=== PATIENT | female | born 1930 | race Caucasian/White ===

== ENCOUNTER → 2017-03-15 | Outpatient (CLI) | payer MEDICARE, BC ==
[2017-03-15 13:55] LABS: Blood Urea Nitrogen 23 mg/dL (7-17); Non-African American GFR(MDRD) >60 (>60 ml/min/1.73 sqM)
== END | disposition home or self-care (01) ==
LOC: LABWHC1 12:44
PROVIDERS: ATTEND Psychiatry & Neurology Neurology
DX: R51 Headache (principal)
CPT/HCPCS: 36415; 82565; 84520

== ENCOUNTER → 2017-05-25 | Outpatient (CLI) | payer MEDICARE, BC ==
--- NOTE | 2017-05-26 13:15 | MM ---
Reason for exam: screening (asymptomatic). Last mammogram was performed 1 year and 1 month ago. History: Patient is postmenopausal and has history of breast cancer at age 68. Family history of breast cancer in daughter at age 59. Benign left mammotome panel of the left breast, August 29, 2009. Malignant mastectomy of the right breast, May 05, 1999. Malignant excisional biopsy of the right breast, April 29, 1999. Benign stereotactic core biopsy of the left breast, August 05, 1998. Excisional biopsy of the left breast, 1998. Core biopsy of the left breast. Took hormonal contraceptives for 20 years beginning at age 31. Took estrogen for 25 years beginning at age 41. Took tamoxifen for 5 years beginning at age 68. Physical Findings: A clinical breast exam by your physician is recommended on an annual basis and results should be correlated with mammographic findings. MG 3D Scr Mohan Unilateral W/Cad Bilateral CC and MLO view(s) were taken. Prior study comparison: April 15, 2016, left breast MG 3d screening mammo w/cad. March 28, 2015, left breast MG 3d diag mammo w/cad LT. The breast tissue is heterogeneously dense. This may lower the sensitivity of mammography. Finding: There are typically benign vascular, dystrophic, round, linear calcifications in the left breast. Previous mammotome biopsy in the left breast. There is no discrete abnormality. ASSESSMENT: Benign, BI-RAD 2 RECOMMENDATION: Follow-up diagnostic mammogram of the left breast in 1 year.
== END | disposition home or self-care (01) ==
LOC: RADMAMWWP 10:42
PROVIDERS: ATTEND Internal Medicine
DX: Z12.31 Encounter for screening mammogram for malignant neoplasm of breast (principal)
CPT/HCPCS: 77067

== ENCOUNTER → 2018-02-07 | Outpatient (CLI) | payer MEDICARE, BC ==
--- NOTE | 2018-02-07 15:26 | XR ---
EXAMINATION TYPE: XR chest 2V DATE OF EXAM: 02/07/2018 COMPARISON: Prior chest x-ray 08/13/2013 HISTORY: COPD, shortness of breath TECHNIQUE: Frontal and lateral views of the chest are obtained. FINDINGS: There is no focal air space opacity, pleural effusion, or pneumothorax seen. The cardiac silhouette size is within normal limits. There is a spinal curvature. Minimal strand-like densities present at the level of the cardiac apex likely reflects scarring. The aorta is dense. Prominent lung volume may be indicative of underlying COPD. Probable vascular calcifications are present in left up per quadrant, there could be splenic artery aneurysm measuring 14 mm. The osseous structures are in tact. IMPRESSION: No acute cardiopulmonary process.
== END | disposition home or self-care (01) ==
LOC: RADXRYALE 13:07
PROVIDERS: ATTEND Internal Medicine Sleep Medicine
DX: J44.9 Chronic obstructive pulmonary disease, unspecified (principal)
CPT/HCPCS: 71046

== ENCOUNTER → 2018-06-28 | Outpatient (CLI) | payer MEDICARE, BC ==
--- NOTE | 2018-06-28 10:07 | MM ---
Reason for exam: screening (asymptomatic). Last mammogram was performed 1 year and 1 month ago. History: Patient is postmenopausal and has history of breast cancer at age 68. Family history of breast cancer in daughter at age 59. Benign left mammotome panel of the left breast, August 29, 2009. Malignant mastectomy of the right breast, May 05, 1999. Malignant excisional biopsy of the right breast, April 29, 1999. Benign stereotactic core biopsy of the left breast, August 05, 1998. Excisional biopsy of the left breast, 1998. Core biopsy of the left breast. Took hormonal contraceptives for 20 years beginning at age 31. Took estrogen for 25 years beginning at age 41. Took tamoxifen for 5 years beginning at age 68. Physical Findings: A clinical breast exam by your physician is recommended on an annual basis and results should be correlated with mammographic findings. MG 3D Diag Mammo W/Cad LT CC and MLO view(s) were taken of the left breast. Prior study comparison: May 25, 2017, bilateral MG 3d scr katie unilateral w/cad. April 15, 2016, left breast MG 3d screening mammo w/cad. The breast tissue is heterogeneously dense. This may lower the sensitivity of mammography. Benign calcifications in the left breast. No suspicious abnormality. Left biopsy markers. No significant new findings when compared with previous films. These results were verbally communicated with the patient and result sheet given to the patient on 06/28/18. ASSESSMENT: Benign, BI-RAD 2 RECOMMENDATION: Follow-up diagnostic mammogram of the left breast in 1 year.
== END ==
LOC: RADMAMWWP 08:21
PROVIDERS: ATTEND Internal Medicine
DX: R92.8 Other abnormal and inconclusive findings on diagnostic imaging of breast (principal)
CPT/HCPCS: 77065; G0279; 77061

== ENCOUNTER → 2020-02-21 | Outpatient (CLI) | payer MEDICARE, BC | END | disposition home or self-care (01) | LOC: LABWHC1 10:42 | PROVIDERS: ATTEND Internal Medicine | DX: R50.9 Fever, unspecified (principal) | CPT/HCPCS: U0003; C9803 ==